=== PATIENT | female | born 1990 | race Caucasian/White ===

== ENCOUNTER 2020-05-29 15:04 | Emergency (ER) | payer OTHER, BC ==
[~2020-05-29] VITALS: Ht 167.6 cm; Wt 97.5 kg
[~2020-05-29 15:04] MED LIST: CRUTCH1 EACH
[2020-05-29] MEDS ORDERED: LEVOTHYROXINE25 MCG PO (15:15)
== END 2020-05-29 16:56 | disposition home or self-care (01) ==
LOC: ED 15:04
DX: S61.032A Puncture wound without foreign body of left thumb without damage to nail, initial encounter (principal); W46.0XXA Contact with hypodermic needle, initial encounter; E03.9 Hypothyroidism, unspecified; Z88.2 Allergy status to sulfonamides; Z88.1 Allergy status to other antibiotic agents; Z91.040 Latex allergy status; Z79.899 Other long term (current) drug therapy
CPT/HCPCS: 84460; 86703; 86707; 86803; 87350; 90471; 90715; 99283-25